=== PATIENT | male | born 1970 | race Caucasian/White ===

== ENCOUNTER 2020-04-01 08:27 | Inpatient (IN) | payer OTHER ==
--- OUTSIDE RECORDS SUMMARY | 2020-04-01 08:32 | XMS ---
:1970 Author Organization [facility] Care Team Providers Name Role Phone Omega Magdaleno Unavailable Unavailable Thelma Hernandez Unavailable Unavailable MOHAMUD SANDOVAL MD Unavailable Unavailable MD BRYANT Unavailable Unavailable Holly CEVALLOS MD Unavailable Unavailable Re-disclosure Warning The records that you are about to access may contain information from federally- assisted alcohol or drug abuse programs. If such information is present, then the following federally mandated warning applies: This information has been disclosed to you from records protected by federal confidentiality rules (42 CFR part 2). The federal rules prohibit you from making any further disclosure of this information unless further disclosure is expressly permitted by the written consent of the person to whom it pertains or as otherwise permitted by 42 CFR part 2. A general authorization for the release of medical or other information is NOT sufficient for this purpose. The Federal rules restrict any use of the information to criminally investigate or prosecute any alcohol or drug abuse patient.The records that you are about to access may contain highly sensitive health information, the redisclosure of which is protected by Article 27-F of the [facility] Public Health law. If you continue you may haveaccess to information: Regarding HIV / AIDS; Provided by facilities licensed or operated by the [facility] Office of Mental Health; or Provided by the [facility] Office for People With Developmental Disabilities. If such information is present, then the following [facility] mandated warning applies: This information has been disclosed to you from confidential records which are protected by state law. State law prohibits you from making any further disclosure of this information without the specific written consent of the person to whom it pertains, or as otherwise permitted by law. Any unauthorized further disclosure in violation of state law may result in a fine or skilled nursing sentence or both. A general authorization for the release of medical or other information is NOT sufficient authorization for further disclosure. Allergies and Adverse Reactions Type Description Substance Reaction Status Data Source(s ) Drug allergy No Known Allergies No Known Allergies [facility] Drug allergy No Known Allergies No Known Allergies [facility] Primary Car e Family History Family Member Family Member Family Member Date of Description Data Source(s) Name Gender Status Status Unknown Male Diagnosis 08/29/2018 [facility] 12[facility]:00 AM [facility]) Unknown Male Diagnosis 08/29/2018 [facility]:00 AM [facility]) Unknown Male Diagnosis 08/29/2018 [facility] ([facility] 12[facility]:00 AM [facility]) Unknown Male Diagnosis 08/29/2018 [facility] ([facility] 12[facility]:00 AM [facility]) Unknown Male Diagnosis 08/29/2018 [facility] ([facility] 12:00:00 AM [facility]) Encounters Encounter Providers Location Date Indications Data Source(s ) Inpatient Attender: DEQUAN WRIGHT-1D 03/29/2020 [facility] HOLLYdmitter: 05:47:00 PM bri MALLORY KOUYOUMDJIAN EDT - 03/31/2020 10:29:00 PM EDT Patient discharged. Outpatient ST 03/29/2020 02:10:00 PM EDT - [address] [place] [address] 06:43:00 PM EDT Patient discharged. Outpatient Attender: Thelma ROBINS 03/05/2020 09:17:02 [facility] Halidmitter: Thelma QUIROGA EDT - [facility] C enter Patient discharged. Outpatient Attender: Thelma 03/05/2020 01:56:00 PM [facility] Halidmitter: Thelma EDT - 03/05/2020 Anette Hernandez 11:59:00 PM EDT Medical C enter Patient discharged. Outpatient 03/05/2020 01:36:00 PM EDT - [facility] 03/05/2020 11:59:00 PM EDT Patient discharged. Outpatient Attender: GLEN CEVALLOS 05/05/2019 05:11:[address] Cosmo Gonzalez MD EST [facility] Outpatient Attender: GLEN CEVALLOS 04/21/2019 05:01:[address] Cosmo Gonzalez MD EDT [facility] Outpatient Attender: Omega 5T-LAB 02/18/2019 09:13:00 AM [facility] - Stefan Talbert Rasta EDT - 02/18/2019 Hospital 11:59:00 PM EDT Patient discharged. Insurance Providers Payer name Policy type Policy ID Covered Covered democrat's Policy P shaun / Coverage democrat ID relationship to [facility] ormation type lopez MVP MEDICAID [id number] SP [id number] HMO SELF PAY 0000 Self 0000 MEDICAID INP [id number] Self [id number] R [facility] [id number] Self [id number] HEALTHPLAN MCAID 11 Self 11 MCAID [id number] Self [id number] MVP/HHP [id number] self [id number] [facility] Medicaid [id number] 1 [id number] Plan 3&4 Medicaid Medicaid [id number] [place] [id number] SP [id number] HEALTH-MVP [place] [id number] SP [id number] 800 HEALTH-MVP [place] HEALTH [id number] PATIENT IS [id number] OPT INSURED MVP [id number] 18 [id number] SELF PAY 00 Self 00 MEDICAID OP [id number] Self [id number] [facility] [id number] Self [id number] 800 HEALTHPLAN [place] MVP/HHP O [id number] 01 [id number] [facility] [id number] self [id number] Problems, Conditions, and Diagnoses Code Display Name Description Problem Type Effective Data Dates Source(s) Z01.89 Encounter for Encounter for other Diagnosis 03/05/2020 [facility] other specified specified special 09:17:00 PM H ealth - special examinations EDT [facility] 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 02/18/2019 [facility] (current) drug long-term (current) 09:13:00 AM [place] therapy use of other EDT Hospital medications F11.20 Opioid dependence, Opiate dependence, Diagnosis 9 [facility] uncomplicated continuous 09:13:00 AM [facility] E78.5 Hyperlipidemia, Other and Diagnosis 02/18/2019 [facility] Marychuy nt unspecified unspecified 09:13:00 AM [facility] Surgeries/Procedures Procedure Description Date Indications Data Source(s) Venipuncture 02/18/2019 11:00:13 AM [facility] EDT - 02/18/2019 11:00:13 AM EDT Results ID Date Data Source [id number] 03/05/2020 09:18:00 PM EDT [facility] Name Value Range Interpretation Description Data Sup porting Code Source(s) Document(s ) SARS CoV-2 [facility] Interpretation This lab was ordered by [facility] and reported by [employer]. ID Date Data Source [id number] 03/05/2020 09:18:00 PM EDT [facility] Name Value Range Interpretation Code Description Data Fely rce(s) Supporting Document(s ) 2019-nCoV [facility] RNA XXX KAILEY+probe- Imp This lab [facility] and reported by [employer] [facility]. ID Date Data Source [id number] 03/06/2020 05:54:00 PM EDT [facility] Name Value Range Interpretation Code Description Data Fely rce(s) Supporting Document(s ) COVID-19 NA [facility] PCR - [facility] SARS CoV-2 RNA NEGATIVE (NOT DETECTED)Ne gative results do not preclude SARS-CoV-2 infection and should notbe used as the s ole basis for patient management decisions. Negativeresults must be combined with cl inical observations, patient history,and epidemiological information. Optimum spe cimen types and timingfor peak viral levels during infections caused by SARS-CoV-2 h ave notbeen determined. Collection of multiple specimens or types ofspecimens may be necessary to detect virus. Improper specimencollection and handling, sequenc e variability under primers/probes,or organism present below the limit of dete ction may lead to falsenegative results. Positive and negative predictive values oftesting are highly dependent on prevalence. False negative testresults are more like ly when prevalence is high.The expected result is Negative (Not Detected).The RS-CoV-2 test is intended for the qualitative detection ofnucleic acid from SARS-CoV-2 in nasopharyngeal and oropharyngealswab samples from patients who meet COVID-19 clinical and/orepidemiological criteria. For lower respiratory tract specimens,the as say is submitted for authorization by FDA under an EmergencyUse Authorization (EUA ). Testing methodology is Real-Time PCR (RT-PCR)using high-throughput technology . If received as separate collectiondevices, nasopharyngeal and oropharyngeal specime ns are combined foranalysis.Test results must be correlated with clinical presentation andevaluated in the context of other laboratory ad epidemiologic data.This te st has not been Food and Drug Administration (FDA) cleared orapproved and has been au thorized by FDA under an Emergency UseAuthorization (EUA).[facility] is certified under the ClinicalLaboratory Improvement Amendment s of 1988 (CLIA), 42 U.S.C. [id number], to perform high complexity tests. First Test? [facility] Employed in Healthcare? [facility] Symptomatic as defined by CDC? [facility] Date of Onset. [facility] Hospitalized? [facility] ICU? [facility] Resides in congregate care setting? [facility] ? [facility] Occupation ([employer] resident) NA [facility] Employer Name ([place] resident) NA N [facility] Employer Address ([place]) [place] [facility] Employer City ([place] resident) [place] N [facility] Employer State ([place] [facility] Employer Zip Code ([employer] resident) NA [facility] Performing Lab : [facility] [address] [address]Inzzmwn Director:Dr. Anibal [facility] CLIA Number:[id number] Employer Phone ([employer] resident) NA [facility] ID Date Data Source [id number] 05/10/2019 02:35:00 PM EST [facility] Name Value Range Interpretation Description Data Sup porting Code Source(s) Document(s ) AMPHETAMINES NEGATIVE <10 [facility] CLASS ng/mL [facility] BARBITURATES NEGATIVE <10 [facility] CLASS ng/mL [facility] BENZODIAZAPINES NEGATIVE <0.50 [facility] CLASS ng/mL [facility] COCAINE CLASS NEGATIVE <5.0 [facility] ng/mL [facility] MARIJUANA CLASS NEGATIVE <2.5 [facility] ng/mL [facility] MDMA CLASS NEGATIVE <[facility] ng/mL [facility] MEPROBAMATE CLASS NEGATIVE <2.5 [facility] ng/mL [facility] METHADONE CLASS NEGATIVE <5.0 [facility] ng/mL [facility] NICOTINE CLASS POSITIVE <5.[address] [facility] ng/mL (applies to [facility] COTININE >250.0 <5.[address] [facility] ng/mL normal [facility] Cotinine is a metabolite of nicotine. OPIOIDS CLASS NEGATIVE ng/mL <2.5 [facility] TAPENTADOL CLASS NEGATIVE ng/mL <5.0 [facility] TRAMADOL CLASS NEGATIVE ng/mL <5.0 [facility] PHENCYCLIDINE CLASS NEGATIVE ng/mL <10 [facility] ZOLPIDEM CLASS NEGATIVE ng/mL <5.0 [facility] For additional information, please refer [email or web address]/ [email or web address]/[email or web address](This link is being provided for informational/educational purposes only. )This drug testing is for medical treatment only.Analysis was performed as non-foren sic testing andthese results should be used only by healthcareproviders to render di agnosis or treatment, or tomonitor progress of medical conditions.For assistance wit h interpreting these drug results,please contact a [facility] ToxicologySp ecialist:[phone] ( ), M-F, 8am-6pm EST.These tests were develo ped and their analyticalperformance characteristics have been determined byFamo.us. They have not been cleared orapproved by the FDA. These assays have been validatedpursuant to the CLIA regulations and are used forclinical pur poses.This test was performed at:[facility] [address] [id number] Director: Donaldo Kim M.D. BUPRENORPHINE CLASS POSITIVE ng/mL <0.10 Abnormal (applies to [facility] non-numeric results) [facility] BUPRENORPHINE 5.08 ng/mL <0.10 Above high normal [facility] NALOXONE Negative ng/mL <0.25 [facility] NORBUPRENORPHINE 1.62 ng/mL <0.50 Above high normal [facility] Norbuprenorphine is a metabolite of bupr enorphine. FENTANYL CLASS NEGATIVE ng/mL <0.10 [facility] HEROIN METABOLITE CLASS NEGATIVE ng/mL <1.0 [facility] ID Date Data Source [id number] 04/26/2019 11:19:00 PM EDT [facility] Name Value Range Interpretation Description Data Sup porting Code Source(s) Document(s ) AMPHETAMINES NEGATIVE <10 [facility] CLASS ng/mL [facility] BARBITURATES NEGATIVE <10 [facility] CLASS ng/mL [facility] BENZODIAZAPINES NEGATIVE <0.50 [facility] CLASS ng/mL [facility] COCAINE CLASS NEGATIVE <5.0 [facility] ng/mL [facility] MARIJUANA CLASS NEGATIVE <2.5 [facility] ng/mL [facility] MDMA CLASS NEGATIVE <10 [facility] ng/mL [facility] MEPROBAMATE CLASS NEGATIVE <2.5 [facility] ng/mL [facility] METHADONE CLASS NEGATIVE <5.0 [facility] ng/mL [facility] NICOTINE CLASS POSITIVE <5.[address] [facility] ng/mL (applies to [facility] - results) [place] COTININE 151.3 <5.[address] [facility] ng/mL normal [facility] Cotinine is a metabolite of nicotine. OPIOIDS CLASS NEGATIVE ng/mL <2.5 [facility] TAPENTADOL CLASS NEGATIVE ng/mL <5.[facility] TRAMADOL CLASS NEGATIVE ng/mL <5.0 [facility] PHENCYCLIDINE CLASS NEGATIVE ng/mL <10 [facility] ZOLPIDEM CLASS NEGATIVE ng/mL <5.0 [facility] For additional information, please refer tohttp://[email or web address]/ faq/TVT550(This link is being provided for informational/educational purposes only. )This drug testing is for medical treatment only.Analysis was performed as non-foren sic testing andthese results should be used only by healthcareproviders to render di agnosis or treatment, or tomonitor progress of medical conditions.For assistance wit h interpreting these drug results,please contact a [facility] ToxicologySp ecialist:[phone] ( ), M-F, 8am-6pm EST.These tests were develo ped and their analyticalperformance characteristics have been determined by[employer]us. They have not been cleared orapproved by the FDA. These assays have been validatedpursuant to the CLIA regulations and are used forclinical pur poses.This test was performed at:[facility] [address] [id number] Director: Donaldo Kim M.D. BUPRENORPHINE CLASS POSITIVE ng/mL <0.10 Abnormal (applies to [facility] non-numeric results) [facility] BUPRENORPHINE 0.14 ng/mL <0.10 Above high normal [facility] NALOXONE Negative ng/mL <0.25 [facility] NORBUPRENORPHINE Negative ng/mL <0.50 [facility] FENTANYL CLASS NEGATIVE ng/mL <0.10 [facility] HEROIN METABOLITE CLASS NEGATIVE ng/mL <1.0 [facility] ID Date Data Source [id number] 02/18/2019 09:34:00 AM EDT [facility] Name Value Range Interpretation Description Data Sup porting Code Source(s) Document(s ) NIL 0.03 {IU/mL} Normal (applies NIL [facility] to non-numeric Health results) System Quantif NegativeNegative Normal (applies Quantiferon-T [facility] mon[facility]-TB test result. M. to non-numeric [facility]. [facility] Gold. tuberculosis results) System complex infectionunlikely. TB1-NIL 0.00 {IU/mL} Normal (applies TB1-NIL [facility] to non-numeric Health results) System Mitogen 7.78 {IU/mL} Normal (applies Mitogen-NIL [facility] -NIL to non-numeric Health results) System TB2-NIL 0.00 {IU/mL} Normal (applies TB2-NIL [facility] to non-numeric Health results) System The Nil tube value reflects the backgrou nd interferongamma immune response of the patient's blood sample.This value has be en subtracted from the patient'sdisplayed TB and Mitogen results.Lower than expected results with the Mitogen tube prevent false-negative Quantiferon readings byde tecting a patient with a potential immunesuppressive condition and/or subop timal pre-analyticalspecimen handling.The TB1 Antigen tube is coated with theM. tuberc ulosis-specific antigens designed to elicitresponses from TB antigen primed C D4+ helperT-lymphocytes.The TB2 Antigen tube is coated with theM. tuberculosis-specif ic antigens designed to elicitresponses from TB antigen primed CD4+ helper and CD8+cy totoxic T-lymphocytes.For additional information, please refer [email or web address] [email or web address]/[email or web address](This link is being provided for informational/educ ational purposes only.)Test Performed at:[facility], [place], [place] [address]Ysijgfixkimberly Garcia M.D. ID Date Data Source [id number] 02/18/2019 09:33:00 AM [facility] Name Value Range Interpretation Description Data Sup porting Code Source(s) Document(s ) Color YELLOW Yellow Normal (applies Color [facility] to non-numeric Health results) System Appearance of CLEAR Clear Normal (applies Urine [facility] Urine to non-numeric Appearance Health results) System Glucose, UA NEGATIVE < 50 Normal (applies Glucose, UA [facility] mg/dl to non-numeric Health results) System Specific 1.020 1.001 - Normal (applies Urine Specific [facility] gravity of 1.035 to non-numeric [facility] Urine results) System Protein NEGATIVE < 30 Normal (applies Protein [facility] [Mass/volume] mg/dl to non-numeric Health in Serum or results) System Plasma pH.. 6.5 4.6 - 8.0 Normal (applies pH.. [facility] {pH_units} pH units to non-numeric Health results) System Ketones NEGATIVE Negative Normal (applies Ketones UA [facility] [Mass/volume] mg/dL to non-numeric Health in Urine results) System Bilirubin NEGATIVE Negative Normal (applies Bilirubin [facility] Urine Sm to Lg to non-numeric Urine Health results) System Nitrate+Nitrit NEGATIVE Negative Normal (applies Nitrite [facility] Neg/Pos to non-numeric Health [Mass/volume] results) System in Unspecified specimen Leukocyte NEGATIVE Negative Normal (applies Leukocyte [facility] esterase Tr to Lg to non-numeric Esterase Health [Units/volume] results) Concentration System in Urine Urobilinogen 0.2 mg/dL Normal (applies Urobilinogen [facility] [Mass/volume] to non-numeric UA Health in Urine results) System Urine Blood NEGATIVE Negative Normal (applies Urine Blood [facility] Sm to Lg to non-numeric Health results) System ID Date Data Source [id number] 02/18/2019 09:33:00 AM EDT [facility] Name Value Range Interpretation Description Data Sup porting Code Source(s) Document(s ) Hemoglobin 11.9 14.0 - Below low normal Hemoglobin [facility] [Mass/volume] in {gm/dL} 18.0 Health Blood gm/dL System Erythrocytes 4.17 4.40 - Below low normal RBC Count [facility] [#/volume] in {10^6_u 5.90 Health Blood by L} 10^6 uL System Automated count Leukocytes 7.2 4.8 - Normal (applies WBC Count [facility] [#/volume] in {10^3_u 10.8 to non-numeric Health Unspecified L} 10^3 uL results) System specimen by Automated count Erythrocyte mean 28.5 pg 26.0 - Normal (applies MCH [facility] corpuscular 34.0 pg to non-numeric Health hemoglobin results) System [Entitic mass] by Automated count Hematocrit 36.9 % 41.0 - Below low normal Hematocrit [facility] [Volume 53.0 % Health Fraction] of System Blood Erythrocyte mean 88.5 fl 83.0 - Normal (applies MCV [facility] corpuscular 98.0 fl to non-numeric Health volume [Entitic results) System volume] by Automated count Erythrocyte mean 32.2 33.0 - Below low normal MCHC [facility] corpuscular {gm/dL} 37.0 Health hemoglobin gm/dL System concentration [Mass/volume] by Automated count Platelet mean 9.8 fl 7.4 - Normal (applies MPV [facility] volume [Entitic 10.4 fl to non-numeric Health volume] in Blood results) System by Automated count Erythrocyte 12.3 % 11.5 - Normal (applies RDW-CV [facility] distribution 14.5 % to non-numeric Health width [Entitic results) System volume] by Automated count Platelets 208 130 - Normal (applies Platelet Count [facility] [#/volume] in {10^3_u 400 to non-numeric Health Plasma by L} 10^3 uL results) System Automated count Eosinophils 0.50 0.05 - Above high Eosinophil # [facility] [#/volume] in {10^3_u 0.30 normal Health Blood L} 10^3 uL System Monocytes 0.7 0.3 - Normal (applies Monocyte # [facility] [#/volume] in {10^3_u 0.9 to non-numeric Health Blood by Manual L} 10^3 uL results) System count Neutrophils 4.4 2.0 - Normal (applies Neutrophil # [facility] [#/volume] in {10^3_u 8.1 to non-numeric Health Body fluid L} 10^3 uL results) System Neutrophils/100 60.5 % 55.0 - Normal (applies Neutrophil % Andres mckinley leukocytes in 75.0 % to non-numeric Health Blood by results) System Automated count Basophils 0.06 0.00 - Normal (applies Basophil # [facility] [#/volume] in {10^3_u 0.10 to non-numeric Health Blood by L} 10^3 uL results) System Automated count Lymphocyte # 1.6 1.0 - Normal (applies Lymphocyte # [facility] {10^3_u 5.5 to non-numeric Health L} 10^3 uL results) System Basophils/100 0.8 % 0.0 - Normal (applies Basophil % [facility] leukocytes in 1.0 % to non-numeric Health Unspecified results) System specimen by Manual count Lymphocytes 22.3 % 21.0 - Normal (applies Lymphocyte % [facility] [#/volume] in 51.0 % to non-numeric Health Blood by results) System Automated count Eosinophils/100 7.0 % 0.0 - Above high Eosinophil % [facility] leukocytes in 4.0 % normal Health Unspecified System specimen Monocytes/100 9.1 % 6.0 - Above high Monocyte % [facility] leukocytes in 9.0 % normal Health Blood System NRBC # 0.00 0.90 - Below low normal NRBC # [facility] {10^3_u 11.20 Health L} 10^3 uL System Immature 0.3 % 0.0 - Normal (applies Immature [facility] Granulocytes % 0.8 % to non-numeric Granulocytes % Healt h results) System Immature 0.02 0.00 - Normal (applies Immature [facility] Granulocytes # {10^3_u 0.09 to non-numeric Granulocytes # Healt h L} 10^3 uL results) System Nucleated 0.0 0.0 - Normal (applies NRBC % [facility] erythrocytes {/100_W 0.0 to non-numeric Health [#/volume] in BC} /100 results) System Body fluid WBC ID Date Data Source [id number] 02/18/2019 09:33:00 AM EDT [facility] Name Value Range Interpretation Description Data Sup porting Code Source(s) Document(s ) Triglyceride 32 mg/dl 40 - 160 Below low normal Triglycerides [facility] [Mass/volume] mg/dl , Serum Health in Serum or System Plasma Optimal = < 100 mg/dLBoderline High = 15 0 - 199 mg/dLHigh = 200 - 499 mg/dLVery High = > 500 mg/dL Cholesterol 138 mg/dl *.* mg/dl Normal (applies Cholesterol, [facility] [Mass/volume] in to non-numeric Serum Health S ystem Serum or Plasma results) <200 mg/dL = [id number] - 239 md/dL = Borderline>240 mg/dL = High Risk Cholesterol in LDL 76.6 mg/dL Normal (applies Low Density [facility] [Mass/volume] in to non-numeric Lipoprotein, [facility] Serum or Plasma results) Calculated OPTIMAL: LESS THAN 100 mg/dLNEAR OPTIMAL : 100 - 129 mg/dLBODERLINE HIGH: 130 - 150 mg/dL Cholesterol in HDL 55.0 mg/dL 32.0 - Normal (applies HDL Choleste rol, [facility] [Mass/volume] in 75.0 mg/dL to non-numeric Serum Health System Serum or Plasma results) Cholesterol in 6.4 Normal (applies VLDL, Serum [facility] VLDL [Mass/volume] to non-numeric Health System in Serum or Plasma results) CHD Risk 2.51 2.40 - Normal (applies CHD Risk [facility] 5.30 to [facility]-numeric [facility] results) ID Date Data Source [id number] 02/18/2019 09:33:00 AM EDSantiago Trevizo alth System Name Value Range Interpretation Description Data Sup porting Code Source(s) Document(s ) Sodium 139 137 - Normal (applies Sodium, Serum [facility] [Moles/volume] in mmol/L 145 to non-numeric Health Serum or Plasma mmol/L results) System Chloride 99 98 - Normal (applies Chloride, [facility] [Moles/volume] in mmol/L 107 to non-numeric Serum Health Serum or Plasma mmol/L results) System Potassium 4.7 3.6 - Normal (applies Potassium, [facility] [Mass/volume] in mmol/L 5.0 to non-numeric Serum Health Serum or Plasma mmol/L results) System Carbon dioxide, 34.0 22.0 - Above high CO2, Serum [facility] total mmol/L 30.0 normal Health [Moles/volume] in mmol/L System Serum or Plasma Total Protein 6.3 6.3 - Normal (applies Total Protein [facility] mg/dl 8.2 to non-numeric Health mg/dl results) System Urea nitrogen 14 9 - 21 Normal (applies Blood Urea [facility] [Mass/volume] in mg/dl mg/dl to non-numeric Nitrogen, Health Serum or Plasma results) Serum System Glucose 96 75 - Normal (applies Glucose, [facility] [Mass/volume] in mg/dL 110 to non-numeric Serum Health Serum or Plasma mg/dL results) System Creatinine 0.80 0.80 - Normal (applies Creatinine, [facility] [Mass/volume] in mg/dl 1.50 to non-numeric Serum Health Serum or Plasma mg/dl results) System Bilirubin.total 0.2 0.2 - Normal (applies Bilirubin, [facility] [Mass/volume] in mg/dl 1.3 to non-numeric Serum Total Health Serum or Plasma mg/dl results) System Alkaline 58 38 - Normal (applies Alkaline [facility] phosphatase {IU/L} 126 to non-numeric Phosphatase, [facility] isoenzymes IU/L results) Serum System [Enzymatic activity/volume] in Serum or Plasma by Heat stability Direct Bilirubin 0.1 0.0 - Normal (applies Direct [facility] mg/dl 0.4 to non-numeric Bilirubin Health mg/dl results) System Aspartate 18 5 - 40 Normal (applies Aspartate [facility] aminotransferase {IU/L} IU/L to non-numeric Transaminase, Heal th [Enzymatic results) Serum System activity/volume] in Serum or Plasma by With P-5'-P I. Phosphorus 3.4 2.5 - Normal (applies I. Phosphorus [facility] mg/dl 4.5 to non-numeric Health mg/dl results) System Albumin 4.1 3.9 - Normal (applies Albumin, [facility] [Mass/volume] in {gm/dl} 5.0 to non-numeric Serum Health Serum or Plasma gm/dl results) System Calcium 9.3 8.4 - Normal (applies Calcium, [facility] [Mass/volume] in mg/dl 10.2 to non-numeric Total Serum Health Serum or Plasma mg/dl results) System A/G Ratio 1.86 Normal (applies A/G Ratio [facility] to non-numeric Health results) System Alanine 12 7 - 56 Normal (applies Alanine [facility] aminotransferase {IU/L} IU/L to non-numeric Aminotransfer Heal th [Enzymatic results) ase, Serum System activity/volume] in Serum or Plasma Urate 4.3 3.5 - Normal (applies Uric Acid, [facility] [Mass/volume] in mg/dl 8.5 to non-numeric Serum Health Serum or Plasma mg/dl results) System Anion gap in Serum 6.00 8.00 - Below low normal Anion Gap [facility] or Plasma mmol/L 12.00 Health mmol/L System Glomerular > 90 Normal (applies GFR [facility] filtration to non-numeric Health rate/1.73 sq results) System M.predicted [Volume Rate/Area] in Serum or Plasma by Creatinine-based formula (CKD-EPI) eGFR will provide clinicians with a more accurate indicator of renal function then the serum creatinine. The eGFR is automa tically calculated from an empiric formula (endorsed by the [employer] ion) which incorporates age, sex, and race.Clinicians may notice surprisingly low GFR's with serum creatinine valueswithin normal range- particularly in elderly wo men (with low muscle mass).In the hospital setting, the eGFR should add an element of safety in drug dosing, in assessing the risk of IV contrast administration, and in assessing vascular risk.The NKF staging system is as follows:Normal: eGFR >90 with no kidney markersStage 1: eGFR >90 with kidney markers*Stage 2: eGFR 60- 89Stage 3: eGFR 30-59Stage 4: eGFR 15-29Stage 5: eGFR <15 (usually requir ing dialysis)*Markers include: Proteinuria, Hematuria, abnormal imaging-studies, or other blood or urine test abnormalities ID Date Data Source [id number] 02/18/2019 09:30:00 AM EDT [facility] Name Value Range Interpretation Description Data Source(s ) Supporting Code Document(s ) Reagin Ab Non-react Normal (applies to RPR. [facility] [Presence] shawn non-numeric Health System in Serum by results) RPR Procedure Social History Code Duration Value Status Description Data Source(s ) Caffeine Use 04/08/2019 completed coffee, > 6 cups NEXTGE N ([facility] 12:00:00 AM EDT [facility]) Vital Signs ID Date Data Source UNK Name Value Range Interpretation Code Description Data Source(s) Body temperature 97.9 Fahrenheit 97.9 Fahrenhei t [facility] Diastolic blood 75 mmHg 75 mmHg [facility] Systolic blood 127 mmHg 127 mmHg [facility] Respiratory rate 18 bpm 18 bpm [facility] Heart rate 93 bpm 93 bpm [facility]
--- NOTE | 2020-04-01 08:52 | BHS.RME ---
Substance Use & Tx History - Substance Use History Heroin Substance amount: 30 bags Frequency of use: Daily Substance route: Inhalation (ex: sniffing or snorting) Date of Last Use: 04/01/20 (started age 49) Xanax Substance amount: 2mg -5 tabs Frequency of use: Daily Substance route: Oral Date of Last Use: 04/01/20 (started age 43) Nicotine Substance amount: 2-3 packs Frequency of use: Daily Substance route: Smoking Date of Last Use: 04/01/20 (started age 17)
[2020-04-01 08:54] VITALS: BMI 25.4
--- NOTE | 2020-04-01 09:42 | HP ---
COWS - Scale Resting Pulse: 1= MD 81-100 CIWA Score - Admission Criteria OASAS Guidelines: Admission for Medically Managed Detox: Requires at least one of the followin. CIWA greater than 12 2. Seizures within the past 24 hours 3. Delirium tremens within the past 24 hours 4. Hallucinations within the past 24 hours 5. Acute intervention needed for co occurring medical disorder 6. Acute intervention needed for co occurring psychiatric disorder 7. Severe withdrawal that cannot be handled at a lower level of care (continued vomiting, continued diarrhea, abnormal vital signs) requiring intravenous medication and/or fluids 8. Admitting History and Physical - Admission Chief Complaint: Mr. Galaviz is a 49 yo man who presents to [facility] requesting admission for heroin use. History of Present Illness: Mr. Galaviz is a 49 yo man who presents to [facility] requesting admission for heroin use. He was last here in January of 2019 and left AMA after two days. More recently, he left [facility] and [facility] as he felt uncomfortable with withdrawal symptoms. He states he left [facility] last Sunday, went home, used heroin and Xanax. Then 4 days ago, on SundayMarch 28, he went to [facility]. He left [facility] yesterday, went home and used again. He presents today asking for detox admission. He states his longest sobriety was 7 mos at [facility] and then 6 mos at [facility], then 7 mos at home, total 20 mos betwen 2018 and 2018. He defines triggers as "complacency" "I can do this". 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 L4 and L5 PSH: 2008: left finger amputated Pscyh: depression, he self d/c'd: Prozac, Wellbutrin SOC: lives with family and mother Legal: none Substance Use History Heroin Substance amount: 30 bags Frequency of use: Daily Substance route: Inhalation (ex: sniffing or snorting) Date of Last Use: 04/01/20 (started age 49) OD 6 mos ago. Has narcan at home, does not carry it with him Xanax Substance amount: 2mg -5 tabs Frequency of use: Daily Substance route: Oral Date of Last Use: 04/01/20 (started age 43) Nicotine Substance amount: 2-3 packs Frequency of use: Daily Substance route: Smoking Date of Last Use: 04/01/20 (started age 17) Alcohol: denies Suboxone: does not want to continue, last rx in January 10 Meets admission criteria, high risk relapse, high risk OD Tomi Galaviz, 1970 Search Date: 04/01/2020 09:49:32 AM The Drug Utilization Report below displays all of the controlled substance prescriptions, if any, that your patient has filled in the last twelve months. The information displayed on this report is compiled from pharmacy submissions to the Department, and accurately reflects the information as submitted by the pharmacies. This report was requested by: Nika Gonzales | Reference #: [id number] Others' Prescriptions Patient Name: Tomi Galaviz Date: 1970 Address: [address] [place] [address] Sex: Male Rx Written Rx Dispensed Drug Quantity Days Supply Prescriber Name 02/17/2020 02/18/2020 buprenorphine-naloxone 4-1 mg sl film 90 30 Charlie Franklin J (MSN) 02/17/2020 02/18/2020 clonazepam 1 mg tablet 60 30 Charlie Franklin J, (MSN) 02/03/2020 02/04/2020 clonazepam 1 mg tablet 20 10 Charlie Franklin J, (MSN) 02/03/2020 02/04/2020 buprenorphine-naloxone 4-1 mg sl film 30 10 Charlie Franklin J (MSN) 01/19/2020 01/20/2020 buprenorphine-naloxone 4-1 mg sl film 45 15 Charlie Franklin J, (MSN) 01/19/2020 01/20/2020 clonazepam 1 mg tablet 15 15 Charlie Franklin J, (MSN) 01/14/2020 01/14/2020 buprenorphine-naloxone 4-1 mg sl film 14 7 Charlie Frnaklin J (MSN) History Source: Patient Limitations to Obtaining History: No Limitations - Smoking History Smoking history: Current every day smoker Have you smoked in the past 12 months: Yes Aproximately how many cigarettes per day: 40 Admission ROS [facility] Allergies/Adverse Reactions: Allergies Allergy/AdvReac Type Severity Reaction Status Date / Time No Known Allergies Allergy Verified 04/01/20 09:20 Exam Limitations: No Limitations - Ebola screening Have you traveled outside of the country in the last 21 days: No Have you been sick,other than usual withdrawal symptoms: No Do you have a fever: No - Review of Systems Constitutional: Unintentional Wgt. Loss (40 lb loss in 8 mos) EENT: reports: No Symptoms Reported Respiratory: reports: No Symptoms reported Cardiac: reports: No Symptoms Reported Musculoskeletal: reports: Back Pain (can radiate to medial right with heavy work) Integumentary: reports: No Symptoms Reported Neuro: reports: Other (above: back pain) Endocrine: reports: No Symptoms Reported Hematology: reports: No Symptoms Reported Psychiatric: reports: Depressed (no SI) Patient History - Patient Medical History Hx Anemia: No Hx Asthma: No Hx Chronic Obstructive Pulmonary Disease (COPD): No Hx Cancer: No Hx Cardiac Disorders: No Hx Congestive Heart Failure: No Hx Hypertension: No Hx Hypercholesterolemia: No Hx Pacemaker: No HX Cerebrovascular Accident: No Hx Seizures: No Hx Dementia: No Hx Diabetes: No Hx Gastrointestinal Disorders: No Hx Liver Disease: No Hx Genitourinary Disorders: No Hx Sexually Transmitted Disorders: No Hx Renal Disease (ESRD): No Hx Thyroid Disease: No Hx Human Immunodeficiency Virus (HIV): No Hx Hepatitis C: No Hx Depression: Yes Hx Suicide Attempt: No Hx Bipolar Disorder: No Hx Schizophrenia: No - Patient Surgical History Past Surgical History: Yes Hx Neurologic Surgery: Yes (Back sx in 2007) Hx Cataract Extraction: No Hx Cardiac Surgery: No Hx Lung Surgery: No Hx Breast Surgery: No Hx Breast Biopsy: No Hx Abdominal Surgery: No Hx Appendectomy: No Hx Cholecystectomy: No Hx Genitourinary Surgery: No Hx Section: No Hx Orthopedic Surgery: No Other Surgical History: SP L MIDDLE FINGER AMPUTATION in 2007 Anesthesia Reaction: No - PPD History Previous Implant?: Yes Documented Results: Negative w/o proof Implanted On Prior [facility] Admission?: No - Smoking Cessation Smoking history: Current every day smoker Have you smoked in the past 12 months: Yes Aproximately how many cigarettes per day: 40 Hx Chewing Tobacco Use: No Initiated information on smoking cessation: Yes 'Breaking Loose' booklet given: 04/01/20 Admission Physical Exam [facility] - Vital Signs Vital Signs: Vital Signs - 24 hr 04/01/20 08:49 Temperature 98.2 F Pulse Rate 88 Respiratory 19 Rate Blood Pressure 122/71 - Physical General Appearance: Yes: No Apparent Distress, Nourished, Appropriately Dressed, Tremorous HEENTM: Yes: EOMI, Hearing grossly Normal, Normocephalic, Normal Voice Respiratory: Yes: Lungs Clear, No Respiratory Distress, No Accessory Muscle Use Neck: Yes: Within Normal Limits Breast: Yes: Breast Exam Deferred Cardiology: Yes: Regular Rhythm, Regular Rate Abdominal: Yes: Normal Bowel Sounds, Non Tender, Flat, Soft Genitourinary: Yes: Other (deferred) Back: Yes: Normal Inspection Musculoskeletal: Yes: Gait Steady Extremities: Yes: Normal Inspection, Non-Tender Neurological: Yes: Alert, Normal Response Integumentary: Yes: Normal Color, Dry, Warm - Diagnostic (1) Opioid withdrawal Current Visit: Yes Status: Acute (2) Sedative abuse Current Visit: Yes Status: Acute (3) Nicotine dependence Current Visit: No Status: Chronic Cleared for Admission S - Detox or Rehab [facility] Level of Care: Medically Managed Breathalyzer - Breathalyzer Breathalyzer: 0 Urine Drug Screen - Test Device Lot number: [id number] Expiration date: 01/26/22 - Control Is test valid?: Yes - Results Drug screen NEGATIVE: No Urine drug screen results: MOP-Opiates, OXY-Oxycodone, BZO-Benzodiazepines, BUP- Suboxone Inpatient Rehab Admission - Rehab Decision to Admit Inpatient rehab admission?: No
--- OUTSIDE RECORDS SUMMARY | 2020-04-01 09:48 | XMS ---
:1970 Author Organization [facility] Care Team Providers Name Role [...] is protected by Article 27-F of the [facility] Public Health law. If you continue you may haveaccess to information: Regarding HIV / AIDS; Provided by facilities licensed or operated by the [facility] Office of Mental Health; or Provided by the [facility] Office for People With Developmental Disabilities. If such information is present, then the following [facility] mandated warning applies: This information has been [...] law may result in a fine or retirement sentence or both. A general authorization for the release of medical or other information is NOT sufficient authorization for further disclosure. Allergies and Adverse Reactions Type Description Substance Reaction Status Data Source(s ) Drug allergy No Known Allergies No Known Allergies [facility] Drug allergy No Known Allergies No Known Allergies [facility] Primary Car e Family History Family Member Family Member Family Member Date of Description Data Source(s) Name Gender Status Status Unknown Male Diagnosis 08/29/2018 [facility] 12:00:00 AM [facility]) Unknown Male Diagnosis 08/29/2018 [facility] ([facility] 12:00:00 AM [facility]) Unknown Male Diagnosis 08/29/2018 [facility] ([facility] 12:00:00 AM [facility]) Unknown Male Diagnosis 08/29/2018 [facility] ([facility] 12:00:00 AM [facility]) Unknown Male Diagnosis 08/29/2018 [facility]EXTGEN ([facility] 12:00:00 AM [facility]) Encounters Encounter Providers Location Date Indications Data Source(s ) Inpatient Attender: DEQUAN WRIGHT-1D 03/29/2020 [facility] HOLLYdmitter: 05:47:00 PM bri MALLORY KOUYOUMDJIAN EDT - 03/31/2020 10:29:00 PM EDT Patient discharged. Outpatient ST 03/29/2020 02:10:00 PM EDT - [address] [place] [address] 06:43:00 PM EDT Patient discharged. Outpatient Attender: Thelma ROBINS 03/05/2020 09:17:02 [facility] Halidmitter: Thelma QUIROGA EDT - [facility] Medical C enter Patient discharged. Outpatient Attender: Thelma 03/05/2020 01:56:00 PM [facility] Halidmitter: Thelma EDT - 03/05/2020 Anette Hernandez 11:59:00 PM EDT Medical C enter Patient discharged. Outpatient 03/05/2020 01:36:00 PM EDT - [facility] Care 03/05/2020 11:59:00 PM EDT Patient discharged. Outpatient Attender: GLEN CEVALLOS 05/05/2019 05:11:[address] Cosmo Gonzalez MD EST [facility] Outpatient Attender: GLEN CEVALLOS 04/21/2019 05:01:[address] Cosmo Gonzalez MD EDT [facility] Outpatient Attender: Omega 5T-LAB 02/18/2019 09:13:00 AM [facility] - Stefan Talbert Rasta EDT - 02/18/2019 Hospital 11:59:00 PM EDT Patient discharged. Insurance Providers Payer name Policy type Policy ID Covered Covered republican's Policy P shaun / Coverage republican ID relationship to Lopez Inf ormation type lopez MVP MEDICAID [id number] SP [id number] HMO SELF PAY 0000 Self 0000 MEDICAID INP [id number] Self [id number] R [facility] [id number] Self [id number] HEALTHPLAN MCAID 11 Self 11 MCAID [id number] Self [id number] MVP/HHP [id number] self [id number] P/Cohn [facility] Medicaid [id number] 1 [id number] Plan 3&4 Medicaid Medicaid [id number] [place] [id number] SP [id number] HEALTH-MVP [place] [id number] SP [id number] HEALTH-MVP [place] [facility] [id number] PATIENT IS [id number] OPT INSURED MVP [id number] 18 [id number] SELF PAY 00 Self 00 MEDICAID OP [id number] Self [id number] [facility] [id number] Self [id number] HEALTHPLAN [place] MVP/HHP O [id number] 01 [id number] [facility] [id number] self [id number] Problems, Conditions, and Diagnoses Code Display Name Description Problem Type Effective Data Dates Source(s) Z01.89 Encounter for Encounter for other Diagnosis 03/05/2020 Gale claudio other specified specified special 09:17:00 PM H ealth - special examinations EDT [facility] 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 02/18/2019 [facility] (current) drug long-term (current) 09:13:00 AM [facility] use of other EDT Hospital medications F11.20 Opioid dependence, Opiate dependence, Diagnosis 9 [facility] uncomplicated continuous 09:13:00 AM [facility] E78.5 Hyperlipidemia, Other and Diagnosis 02/18/2019 [facility] Marychuy nt unspecified unspecified 09:13:00 AM [facility] Surgeries/Procedures Procedure Description Date Indications Data Source(s) Venipuncture 02/18/2019 11:00:13 AM [facility] EDT - 02/18/2019 11:00:13 AM EDT Results ID Date Data Source [id number] 03/05/2020 09:18:00 PM EDT [facility] Name Value Range Interpretation Description Data Sup porting Code Source(s) Document(s ) SARS CoV-2 [facility] Interpretation This lab was ordered by [facility] and reported by [employer]. ID Date Data Source [id number] 03/05/2020 09:18:00 PM EDT [facility] Name Value Range Interpretation Code Description Data Fely rce(s) Supporting Document(s ) 2019-nCoV [facility] RNA XXX KAILEY+probe- Imp This lab was ordered by [facility] and reported by [facility]. ID Date Data Source [id number] 03/06/2020 05:54:00 PM EDT [facility] Name Value Range Interpretation Code Description Data Fely rce(s) Supporting Document(s ) COVID-19 NA [facility] PCR - [facility] SARS CoV-2 RNA NEGATIVE (NOT DETECTED)Ne gative [...] thorized by FDA under an Emergency UseAuthorization (EUA).[facility] is certified under the ClinicalLaboratory Improvement Amendment s of 1988 (CLIA), 42 U.S.C. [id number], to perform high complexity tests. First Test? [facility] Employed in Healthcare? [facility] Symptomatic as defined by CDC? [facility] Date of Onset. [facility] Hospitalized? [facility] ICU? [facility] Resides in congregate care setting? [facility] ? [facility] Occupation ([facility] resident) NA [facility] Employer Name ([place] resident[place] NA N [facility] Employer Address ([place] resident) NA [facility] Employer City ([place] resident) NA N [facility] Employer State ([place] resident) NA [facility] Employer Zip Code ([facility] resident) NA [facility] Performing Lab : [place] [facility] [employer] [address] [address]V[place]ewf Director:Dr. Anibal [facility] CLIA Number:[id number] Employer Phone ([facility] resident) NA [facility] ID Date Data Source [id number] 05/10/2019 02:35:00 PM EST [facility] Name Value Range Interpretation Description Data Sup porting Code Source(s) Document(s ) AMPHETAMINES NEGATIVE <10 [facility] CLASS ng/mL [facility] BARBITURATES NEGATIVE <10 [facility] CLASS ng/mL [facility] BENZODIAZAPINES NEGATIVE <0.50 [facility] CLASS ng/mL [facility] COCAINE CLASS NEGATIVE <5.0 [facility] ng/mL [facility] MARIJUANA CLASS NEGATIVE <2.5 [facility] ng/mL [facility] MDMA CLASS NEGATIVE <[facility] ng/mL [facility] MEPROBAMATE CLASS NEGATIVE <2.5 [facility] ng/mL [facility] METHADONE CLASS NEGATIVE <5.0 [facility] ng/mL [facility] NICOTINE CLASS POSITIVE <5.[address] [facility] ng/mL (applies to [facility] COTININE >250.0 <5.[address] [facility] ng/mL normal [facility] Cotinine is a metabolite of nicotine. OPIOIDS CLASS NEGATIVE ng/mL <2.5 [facility] TAPENTADOL CLASS NEGATIVE ng/mL <5.[facility] TRAMADOL CLASS NEGATIVE ng/mL <5.0 [facility] C [facility] PHENCYCLIDINE CLASS NEGATIVE ng/mL <10 [facility] ZOLPIDEM CLASS NEGATIVE ng/mL <5.0 [facility] For additional information, please refer [email or web address]/ [email or web address](This link is being provided for informational/educational purposes only. )This drug testing is for medical treatment only.Analysis was performed as non-foren sic testing andthese results should be used only by healthcareproviders to render di agnosis or treatment, or tomonitor progress of medical conditions.For assistance wit h interpreting these drug results,please contact a [employer] T[facility]ology[facility] ecialist:[phone] ( ), M-F, 8am-6pm EST.These tests were develo ped and their analyticalperformance characteristics have been determined by[facility]onominalu[employer]ru. They have not been cleared orapproved by the FDA. These assays have been validatedpursuant to the CLIA regulations and are used forclinical pur poses.This test was performed at:[employer] [address] [address]Nhbftvb Director: Donaldo Kim M.D. BUPRENORPHINE CLASS POSITIVE ng/mL <0.10 Abnormal (applies to [facility] non-numeric results) [facility] BUPRENORPHINE 5.08 ng/mL <0.10 Above high normal [facility] NALOXONE Negative ng/mL <0.25 [facility] NORBUPRENORPHINE 1.62 ng/mL <0.50 Above high normal [facility] Norbuprenorphine is a metabolite of bupr enorphine. FENTANYL CLASS NEGATIVE ng/mL <0.10 [facility] HEROIN METABOLITE CLASS NEGATIVE ng/mL <1.0 [facility] ID Date Data Source [id number] 04/26/2019 11:19:00 PM EDT [facility] Name Value Range Interpretation Description Data Sup porting Code Source(s) Document(s ) AMPHETAMINES NEGATIVE <10 [facility] CLASS ng/mL [facility] BARBITURATES NEGATIVE <10 [facility] CLASS ng/mL [facility] BENZODIAZAPINES NEGATIVE <0.50 [facility] CLASS ng/mL [facility] COCAINE CLASS NEGATIVE <5.0 [facility] ng/mL [facility] MARIJUANA CLASS NEGATIVE <2.5 [facility] ng/mL [facility] MDMA CLASS NEGATIVE <10 [facility] ng/mL [facility] MEPROBAMATE CLASS NEGATIVE <2.5 [facility] ng/mL [facility] METHADONE CLASS NEGATIVE <5.0 [facility] ng/mL [facility] NICOTINE CLASS POSITIVE <5.[address] [facility] ng/mL (applies to [facility] - results) [place] COTININE 151.3 <5.[address] [facility] ng/mL normal [facility] Cotinine is a metabolite of nicotine. OPIOIDS CLASS NEGATIVE ng/mL <2.5 [facility] TAPENTADOL CLASS NEGATIVE ng/mL <5.[facility] TRAMADOL CLASS NEGATIVE ng/mL <5.0 [facility] PHENCYCLIDINE CLASS NEGATIVE ng/mL <10 [facility] ZOLPIDEM CLASS NEGATIVE ng/mL <5.0 [facility] For additional information, please refer [email or web address]/ [email or web address](This link is being provided for informational/educational purposes only. )This drug testing is for medical treatment only.Analysis was performed as non-foren sic testing andthese results should be used only by healthcareproviders to render di agnosis or treatment, or tomonitor progress of medical conditions.For assistance wit h interpreting these drug results,please contact a [employer] [facility]ology[facility] ecialist:[phone] ( ), M-F, 8am-6pm EST.These tests were develo ped and their analyticalperformance characteristics have been determined by[facility]. They have not been cleared orapproved by the FDA. These assays have been validatedpursuant to the CLIA regulations and are used forclinical pur poses.This test was performed at:[employer] [address] [address]Vnsnktq Director: Donaldo Kim M.D. BUPRENORPHINE CLASS POSITIVE ng/mL <0.10 Abnormal (applies to [facility] non-numeric results) [facility] BUPRENORPHINE 0.14 ng/mL <0.10 Above high normal [facility] NALOXONE Negative ng/mL <0.25 [facility] NORBUPRENORPHINE Negative ng/mL <0.50 [facility] FENTANYL CLASS NEGATIVE ng/mL <0.10 [facility] HEROIN METABOLITE CLASS NEGATIVE ng/mL <1.0 [facility] ID Date Data Source [id number] 02/18/2019 09:34:00 AM EDT [facility] [...] totoxic T-lymphocytes.For additional information, please refer [email or web address] [email or web address] Decor/faq/204(This link is being provided for informational/educ ational purposes only.)Test Performed at:[facility], [place], [place] [address]Xqrfaqzkkimberly Garcia M.D. ID Date Data Source [id number] 02/18/2019 09:33:00 AM [facility] Name [...] [place] [facility] gravity of 1.035 to non-numeric [facility] Urine results) System Protein NEGATIVE < [...] Health results) System ID Date Data Source [id number] 02/18/2019 09:33:00 AM EDT [facility] [...] Body fluid WBC ID Date Data Source [id number] 02/18/2019 09:33:00 AM EDT Andreas Trevizo alth [...] Serum or Plasma results) <200 mg/dL = [id number] - 239 md/dL = Borderline>240 mg/dL = High Risk Cholesterol in LDL 76.6 mg/dL Normal (applies Low Density [facility] [Mass/volume] in to non-numeric Lipoprotein, [facility] Serum or Plasma results) Calculated [...] Health System results) ID Date Data Source [id number] 02/18/2019 09:33:00 AM EDSantiago Trevizo alth System [...] [facility] phosphatase {IU/L} 126 to non-numeric Phosphatase, [facility] isoenzymes IU/L results) Serum System [Enzymatic activity/volume] [...] urine test abnormalities ID Date Data Source [id number] 02/18/2019 09:30:00 AM EDT [facility] Name Value Range Interpretation Description Data Source(s ) Supporting Code Document(s ) Reagin Ab Non-react Normal (applies to [facility]. [facility] [Presence] shawn non-numeric Health System in Serum by results) [facility] Procedure Social History Code Duration Value Status Description Data Source(s ) Caffeine Use 04/08/2019 completed coffee, > 6 cups NEXTGE N ([facility] 12:00:00 AM EDT [facility]) Vital Signs ID Date Data Source UNK Name Value Range Interpretation Code Description Data Source(s) Body temperature 97.9 Fahrenheit 97.9 Fahrenhei t [facility] Diastolic blood 75 mmHg [address] [facility] Systolic blood 127 mmHg [address] [facility] Respiratory rate 18 bpm 18 bpm [facility] Heart rate 93 bpm 93 bpm [facility]
[2020-04-01] MEDS ORDERED: MAGNESIUM CITRATE 300 ML BOTTLE PO PRN (09:53)
[2020-04-01] MEDS ORDERED: MAG HYDROX/AL HYDROX/SIMETH 30 ML UNIT-DOSE CUP PO PRN (09:53)
[2020-04-01] MEDS ORDERED: MENTHOL/PHENOL 1 EACH UD MM PRN (09:53)
[2020-04-01] MEDS ORDERED: METHADONE HCL 10 MG TABLET (FOR DETOX USE ONLY) PO ONE (09:53)
[2020-04-01] MEDS ORDERED: ACETAMINOPHEN 325 MG TABLET (FP) PO PRN ×2 (09:53)
[2020-04-01] MEDS ORDERED: BISMUTH SUBSALICYLATE 262 MG/15 ML BTL PO PRN (09:53)
[2020-04-01] MEDS ORDERED: IBUPROFEN 400 MG TABLET (FP) PO PRN (09:53)
[2020-04-01] MEDS ORDERED: MAGNESIUM HYDROX 2400MG/30ML ORAL SUSPENSION 30 ML CUP PO PRN (09:53)
[2020-04-01] MEDS ORDERED: cloNIDine HCL 0.1 MG TABLET PO PRN (09:53)
[2020-04-01] MEDS ORDERED: ONDANSETRON *ODT* 4 MG TABLET SL PRN (09:53)
[2020-04-01] MEDS ORDERED: METHOCARBAMOL 500 MG TABLET PO PRN (09:53)
[2020-04-01] MEDS ORDERED: LORazepam 1 MG TABLET PO PRN (09:58)
[2020-04-01] MEDS ORDERED: hydrOXYzine PAMOATE 25 MG CAPSULE (FP) PO SCH (10:00)
--- NOTE | 2020-04-01 10:22 | BHS.RME ---
Substance Use & Tx History - Substance Use History Heroin Substance amount: 30 bags Frequency of use: Daily Substance route: Inhalation (ex: sniffing or snorting) Date of Last Use: 04/01/20 (started 48) Xanax Substance amount: 2mg - 5 tabs Frequency of use: Daily Substance route: Oral Date of Last Use: 04/01/20 (started age 43) Nicotine Substance amount: 2-3 packs Frequency of use: Daily Substance route: Oral Date of Last Use: 04/01/20 (started age 17) Physical/Psych/Mental Status - Behavior General Behavior: Increased activity (restlessness, agitation) Eye Contact: Normal - Cooperativeness Cooperativeness: Cooperative - Thinking Thought Processes: Tight, Logical, Goal Directed - Physical Health Problems Is patient presently having any pain?: No Does patient presently have any injuries (include location): No Does patient currently have a fever: No Is patient : No COWS - Scale Resting Pulse: 1= [place] 81-100 Sweatin= Chills/Flushing Restless Observation: 1= Difficult to Sit Still Pupil Size: 1= Pupils >than Normal Bone or Joint Aches: 1= Mild Discomfort Runny Nose/ Eye Tearin= Runny Nose/Eyes GI Upset > 30mins: 1= Stomach Cramp Tremor Observation: 1= Tremor [place], Not Seen Yawning Observation: 1= 1-2x During Session Anxiety or Irritability: 0= None Goose Flesh Skin: 0=Smooth Skin COWS Score: 10 CIWA Anxiety: 3 Headache: 0-None Present
[2020-04-01] MEDS: GABAPENTIN 300 MG CAPSULE PO SCH ×2 (11:23→17:11)
[2020-04-01] MEDS: PRENATAL VITAMINS W/ FOLIC ACID TABLET (FP) PO SCH (11:23)
[2020-04-01] MEDS: NICOTINE 21 MG/24 HOURS TOPICAL PATCH TD SCH ×2 (11:30→11:48)
[2020-04-01] MEDS: NICOTINE POLACRILEX 2 MG GUM BUC PRN ×2 (11:48→17:49)
[2020-04-01] MEDS ORDERED: hydrOXYzine PAMOATE 25 MG CAPSULE (FP) PO PRN (12:21)
--- NOTE | 2020-04-01 14:06 | CONSULT ---
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 Refer to addiction counselor's summary for further information Medical History: Unremarkable except for amputation of left middle finger(work injury) in 2007 and back surgery involving L4L5 disc in 2007. Smokes cigarettes 2 ppd Psychiatric History: Patient is known for one previous admission to this facility. He is heavily sedated at this time and not suitable for psychiatric interviw Psychiatric Findings - Initial Treatment Plan Initial Treatment Plan: Please reconsult when patient ismore appropriate for psychiatric interview
[2020-04-01 14:32] LABS: HEMATOCRIT 37.9 % (35.4-49); HEMOGLOBIN 12.7 GM/dL (11.7-16.9); MCH 28.8 pg (25.7-33.7); MCHC 33.4 g/dl (32.0-35.9); MEAN PLT VOLUME 8.1 fl (7.5-11.1); PLATELET COUNT 206 K/MM3 (134-434); RBC 4.41 M/mm3 (4.00-5.60)
[2020-04-01] MEDS: LORazepam 2 MG TABLET PO SCH ×3 (14:52→22:06)
[2020-04-01 15:10] LABS: ALBUMIN 4.3 g/dl (3.4-5.0); BILIRUBIN,TOTAL 0.3 mg/dL (0.2-1); BLOOD UREA NITROGEN 17.4 mg/dL (7-18); CALCIUM 8.3 mg/dL (8.5-10.1); CREATININE 0.9 mg/dL (0.55-1.3)
[2020-04-01 15:11] LABS: TOT PROT 7.4 g/dl (6.4-8.2)
[2020-04-01] MEDS: MELATONIN 5 MG TABLETS PO SCH (22:06)
[2020-04-01] MEDS: THIAMINE HCL 100 MG TABLET (FP) PO SCH (22:06)
[2020-04-02] MEDS: GABAPENTIN 300 MG CAPSULE PO SCH ×3 (03:00→18:18)
[2020-04-02] MEDS: LORazepam 2 MG TABLET PO SCH ×4 (06:24→22:24)
[2020-04-02] MEDS ORDERED: METHADONE HCL 10 MG TABLET (FOR DETOX USE ONLY) ONE (09:28)
[2020-04-02] MEDS ORDERED: METHADONE HCL 5 MG TABLET (FOR DETOX USE ONLY) ONE (09:28)
[2020-04-02] MEDS ORDERED: METHADONE (DETOX) 20 MG, METHADONE (DETOX) 5 MG PO ONE (10:00)
--- NOTE | 2020-04-02 10:11 | EKG ---
Test Reason : Blood Pressure : / mmHG Vent. Rate : 080 BPM Atrial Rate : 080 BPM P-R Int : 166 ms QRS Dur : 086 ms QT Int : 372 ms P-R-T Axes : 065 054 036 degrees QTc Int : 429 ms NORMAL SINUS RHYTHM NORMAL ECG WHEN COMPARED WITH ECG OF 11-FEB-2019 16:55, NO SIGNIFICANT CHANGE WAS FOUND Confirmed by DONOVAN ACEVEDO MD ([id number]) on 04/02/2020 10:11:00 AM Referred By: Confirmed By:DONOVAN ACEVEDO MD
[2020-04-02] MEDS: NICOTINE 21 MG/24 HOURS TOPICAL PATCH TD SCH (10:54)
[2020-04-02] MEDS: PRENATAL VITAMINS W/ FOLIC ACID TABLET (FP) PO SCH (11:27)
--- NOTE | 2020-04-02 13:54 | PN ---
[facility] CIWA - CIWA Score Nausea/Vomitin-No Nausea/No Vomiting Muscle Tremors: 2 Anxiety: 2 Agitation: 2 Paroxysmal Sweats: 2 Orientation: 0-Oriented Tacttile Disturbances: 0-None Auditory Disturbances: 0-None Visual Disturbances: 0-None Headache: 0-None Present CIWA-Ar Total Score: 8 [facility] COWS - Scale Resting Pulse: 0= [place] 80 or Below Sweatin= Chills/Flushing Restless Observation: 1= Difficult to Sit Still Pupil Size: 0= Normal to Room Light Bone or Joint Aches: 2= Severe Diffuse Aches Runny Nose/ Eye Tearin= Nasal Congestion GI Upset > 30mins: 0= None Tremor Observation of Outstretched Hands: 1= Tremor [place], Not Seen Yawning Observation: 2= >3x During Session Anxiety or Irritability: 2=Irritable/Anxious Goose Flesh Skin: 0=Smooth Skin COWS Score: 10 [facility] Progress Note (SOAP) Subjective: sweats shakes body aches restless I need to speak to psych again..I am ready to talk now. Objective: 04/02/20 13:55 Vital Signs Temperature 98.4 F 04/02/20 09:25 Pulse Rate 80 04/02/20 09:25 Respiratory Rate 19 04/02/20 09:25 Blood Pressure 116/72 04/02/20 09:25 O2 Sat by Pulse Oximetry (%) 100 04/02/20 09:25 Laboratory Tests 04/01/20 04/01/20 04/01/20 10:15 10:15 10:15 WBC 7.0 RBC 4.41 Hgb 12.7 Hct 37.9 MCV 86.0 MCH 28.8 MCHC 33.4 RDW 14.0 Plt Count 206 MPV 8.1 D Sodium 140 Potassium 4.0 Chloride 101 Carbon Dioxide 35 H Anion Gap 4 L BUN 17.4 Creatinine 0.9 Est GFR (CKD-EPI)AfAm 116.65 Est GFR (CKD-EPI)NonAf 100.64 Random Glucose 81 Calcium 8.3 L Total Bilirubin 0.3 AST 13 L ALT 15 Alkaline Phosphatase 81 Total Protein 7.4 Albumin 4.3 Syphilis Serology Non-reactive COVID-19 (KAILEY) 04/01/20 10:15 WBC RBC Hgb Hct MCV MCH MCHC RDW Plt Count MPV Sodium Potassium Chloride Carbon Dioxide Anion Gap BUN Creatinine Est GFR (CKD-EPI)AfAm Est GFR (CKD-EPI)NonAf Random Glucose Calcium Total Bilirubin AST ALT Alkaline Phosphatase Total Protein Albumin Syphilis Serology COVID-19 (KAILEY) Not detected labs noted aaox3 ambulating no acute distress Assessment: 04/02/20 13:55 withdrawals Plan: continue detox re-vist psych order placed
[2020-04-02] MEDS: NICOTINE POLACRILEX 2 MG GUM BUC PRN ×2 (14:10→16:56)
[2020-04-02] MEDS: BACLOFEN 10 MG TABLET (FP) PO SCH ×2 (14:30→22:24)
[2020-04-02] MEDS: MELATONIN 5 MG TABLETS PO SCH (22:24)
[2020-04-02] MEDS: THIAMINE HCL 100 MG TABLET (FP) PO SCH (22:24)
[2020-04-03] MEDS ORDERED: MASKS NR ONE (05:36)
[2020-04-03] MEDS: GABAPENTIN 300 MG CAPSULE PO SCH ×3 (05:37→18:28)
[2020-04-03] MEDS: LORazepam 1 MG TABLET PO SCH ×4 (05:37→22:15)
[2020-04-03] MEDS: BACLOFEN 10 MG TABLET (FP) PO SCH ×3 (05:37→22:15)
[2020-04-03] MEDS ORDERED: METHADONE HCL 10 MG TABLET (FOR DETOX USE ONLY) PO ONE (10:00)
[2020-04-03] MEDS: PRENATAL VITAMINS W/ FOLIC ACID TABLET (FP) PO SCH (10:26)
[2020-04-03] MEDS: NICOTINE 21 MG/24 HOURS TOPICAL PATCH TD SCH (10:26)
[2020-04-03] MEDS: NICOTINE POLACRILEX 2 MG GUM BUC PRN ×4 (10:26→18:46)
--- NOTE | 2020-04-03 14:33 | PN ---
[facility] CIWA - CIWA Score Nausea/Vomitin-No Nausea/No Vomiting Muscle Tremors: 2 Anxiety: 3 Agitation: 2 Paroxysmal Sweats: 2 Orientation: 0-Oriented Tacttile Disturbances: 0-None Auditory Disturbances: 0-None Visual Disturbances: 0-None Headache: 0-None Present CIWA-Ar Total Score: 9 [facility] COWS - Scale Resting Pulse: 2= [place] 101-120 Sweatin= Chills/Flushing Restless Observation: 1= Difficult to Sit Still Pupil Size: 0= Normal to Room Light Bone or Joint Aches: 2= Severe Diffuse Aches Runny Nose/ Eye Tearin= None GI Upset > 30mins: 0= None Tremor Observation of Outstretched Hands: 1= Tremor [place], Not Seen Yawning Observation: 0= None Anxiety or Irritability: 0= None Goose Flesh Skin: 0=Smooth Skin COWS Score: 7 [facility] Progress Note (SOAP) Subjective: Complaints of anxiety, chills, sweats, tremors and body aches. Objective: 04/03/20 14:32 Vital Signs 04/03/20 04/03/20 08:40 12:26 Temperature 97.1 F L 96.2 F L Pulse Rate 108 H 119 H Respiratory 18 20 Rate Blood Pressure 128/76 131/74 O2 Sat by Pulse 100 Oximetry (%) Laboratory Last Values WBC 7.0 K/mm3 (4.0-10.0) 04/01/20 10:15 RBC 4.41 M/mm3 (4.00-5.60) 04/01/20 10:15 Hgb 12.7 GM/dL (11.7-16.9) 04/01/20 10:15 Hct 37.9 % (35.4-49) 04/01/20 10:15 MCV 86.0 fl (80-96) 04/01/20 10:15 MCH 28.8 pg (25.7-33.7) 04/01/20 10:15 MCHC 33.4 g/dl (32.0-35.9) 04/01/20 10:15 RDW 14.0 % (11.9-15.9) 04/01/20 10:15 Plt Count 206 K/MM3 (134-434) 04/01/20 10:15 MPV 8.1 fl (7.5-11.1) D 04/01/20 10:15 Sodium 140 mmol/L (136-145) 04/01/20 10:15 Potassium 4.0 mmol/L (3.5-5.1) 04/01/20 10:15 Chloride 101 mmol/L (98-107) 04/01/20 10:15 Carbon Dioxide 35 mmol/L (21-32) H 04/01/20 10:15 Anion Gap 4 MMOL/L (8-16) L 04/01/20 10:15 BUN 17.4 mg/dL (7-18) 04/01/20 10:15 Creatinine 0.9 mg/dL (0.55-1.3) 04/01/20 10:15 Est GFR (CKD-EPI)AfAm 116.65 04/01/20 10:15 Est GFR (CKD-EPI)NonAf 100.64 04/01/20 10:15 Random Glucose 81 mg/dL (74-106) 04/01/20 10:15 Calcium 8.3 mg/dL (8.5-10.1) L 04/01/20 10:15 Total Bilirubin 0.3 mg/dL (0.2-1) 04/01/20 10:15 AST 13 U/L (15-37) L 04/01/20 10:15 ALT 15 U/L (13-61) 04/01/20 10:15 Alkaline Phosphatase 81 U/L (45-117) 04/01/20 10:15 Total Protein 7.4 g/dl (6.4-8.2) 04/01/20 10:15 Albumin 4.3 g/dl (3.4-5.0) 04/01/20 10:15 Syphilis Serology Non-reactive (NONREACTIVE) 04/01/20 10:15 COVID-19 (KAILEY) Not detected (Not Detected) 04/01/20 10:15 labs noted. Assessment: 04/03/20 14:32 Patient seen and examined, alert and oriented x3, in acute respiratory distress. Full ROM, ambulatory in the unit without assistance. Skin warm to touch without lesions. withdrawal symptoms. Plan: Continue detox protocol.
--- NOTE | 2020-04-03 14:55 | CONSULT ---
[facility] Psychiatric Consult - Data Date of interview: 04/03/20 Admission source: [facility] Identifying data: Patient is a 49 year old male, father of two, unemployed, domiciled, and is supported with financial savings. This is one of multiple admissions for patient. Patient admitted to for opiate and benzodiazepine dependence. Substance Abuse History: Substance Use History. Heroin. Substance amount: 30 bags. Frequency of use: Daily. Substance route: Inhalation (ex: sniffing or snorting). Date of Last Use: 04/01/20 (started age 49). OD 6 mos ago. Has narcan at home, does not carry it with him. Xanax. Substance amount: 2mg -5 tabs. Frequency of use: Daily. Substance route: Oral. Date of Last Use: 04/01/20 (started age 43). Nicotine. Substance amount: 2-3 packs. Frequency of use: Daily. Substance route: Smoking. Date of Last Use: 04/01/20 (started age 17) Medical History: unremarkable except for amputation of left middle finger(work injury). Psychiatric History: Mr. Galaviz states that his first psychiatric contact was in 2017 while at a program called [facility] in [place]. States that he diagnosed with depression and anxiety. He was treated with depakote and then effexor but states that he discontinued medications immediately after discharge. Patient has only received psychiatric treatment while in detox/ rehab settings. He reports being prescribed prozac 80mg daily + Wellbutrin 300mg + Trazodone 200mg while at [facility]. In addition, Mr. Little reports receiving seroquel from his PCP. Patient is totally lost in follow up care. At present patient is requesting trazodone for insomnia. Physical/Sexual Abuse/Trauma History: denies. Mental Status Exam - Mental Status Exam Alert and Oriented to: Time, Place, Person Cognitive Function: Good Patient Appearance: Well Groomed Mood: Withdrawn Affect: Mood Congruent Patient Behavior: Cooperative Speech Pattern: Appropriate Voice Loudness: Normal Thought Process: Intact, Goal Oriented Thought Disorder: Not Present Hallucinations: Denies Suicidal Ideation: Denies Homicidal Ideation: Denies Insight/Judgement: Poor Sleep: Poorly Appetite: Fair Muscle strength/Tone: Normal Gait/Station: Normal Psychiatric Findings - Problem List ([place] 1, 2,3) (1) Opioid withdrawal Current Visit: Yes Status: Acute (2) Sedative abuse Current Visit: Yes Status: Acute (3) Opiate dependence Current Visit: Yes Status: Acute (4) Substance induced mood disorder Current Visit: Yes Status: Acute (5) Substance-induced sleep disorder Current Visit: Yes Status: Acute - Initial Treatment Plan Initial Treatment Plan: Psychoeducation provided. Detoxification in progress. Will order Trazodone 200mg HS. Benefits and side effects discussed. Verbal consent given.
[2020-04-03] MEDS: MELATONIN 5 MG TABLETS PO SCH (22:15)
[2020-04-03] MEDS: traZODone HCL 100 MG TABLET (FP) PO SCH (22:15)
[2020-04-03] MEDS: THIAMINE HCL 100 MG TABLET (FP) PO SCH (22:15)
[2020-04-04] MEDS ORDERED: LORazepam 0.5 MG TABLET PO PRN
[2020-04-04] MEDS: GABAPENTIN 300 MG CAPSULE PO SCH ×3 (01:24→17:53)
[2020-04-04] MEDS: BACLOFEN 10 MG TABLET (FP) PO SCH ×3 (06:37→22:10)
[2020-04-04] MEDS: LORazepam 0.5 MG TABLET PO SCH ×4 (06:37→22:10)
[2020-04-04] MEDS ORDERED: METHADONE HCL 5 MG TABLET (FOR DETOX USE ONLY) ONE (08:50)
[2020-04-04] MEDS ORDERED: METHADONE HCL 10 MG TABLET (FOR DETOX USE ONLY) ONE (08:51)
[2020-04-04] MEDS ORDERED: METHADONE (DETOX) 10 MG, METHADONE (DETOX) 5 MG PO ONE (10:00)
[2020-04-04] MEDS: NICOTINE 21 MG/24 HOURS TOPICAL PATCH TD SCH (10:25)
[2020-04-04] MEDS: PRENATAL VITAMINS W/ FOLIC ACID TABLET (FP) PO SCH (10:25)
[2020-04-04] MEDS: NICOTINE POLACRILEX 2 MG GUM BUC PRN ×2 (10:26→13:44)
--- NOTE | 2020-04-04 12:55 | PN ---
[facility] CIWA - CIWA Score Nausea/Vomitin-No Nausea/No Vomiting Muscle Tremors: 1-None Visible, but [place] Anxiety: 1-Mildly Anxious Agitation: 1-Slight > Activity Paroxysmal Sweats: 1-Minimal Palms Moist Orientation: 0-Oriented Tacttile Disturbances: 0-None Auditory Disturbances: 0-None Visual Disturbances: 0-None Headache: 0-None Present CIWA-Ar Total Score: 4 S COWS - Scale Resting Pulse: 2= [place] 101-120 Sweatin= Chills/Flushing Restless Observation: 0= Sits Still Pupil Size: 0= Normal to Room Light Bone or Joint Aches: 1= Mild Discomfort Runny Nose/ Eye Tearin= None GI Upset > 30mins: 0= None Tremor Observation of Outstretched Hands: 1= Tremor [place], Not Seen Yawning Observation: 0= None Anxiety or Irritability: 1=Feels Anxious/Irritable Goose Flesh Skin: 0=Smooth Skin COWS Score: 6 S Progress Note (SOAP) Subjective: C/O chills, sweats, tremors and anxiety. Objective: 04/04/20 12:54 Vital Signs 04/04/20 04/04/20 05:32 09:18 Temperature 98 F 98.2 F Pulse Rate 70 105 H Respiratory 18 18 Rate Blood Pressure 115/74 133/87 O2 Sat by Pulse 100 100 Oximetry (%) Laboratory Last Values WBC 7.0 K/mm3 (4.0-10.0) 04/01/20 10:15 RBC 4.41 M/mm3 (4.00-5.60) 04/01/20 10:15 Hgb 12.7 GM/dL (11.7-16.9) 04/01/20 10:15 Hct 37.9 % (35.4-49) 04/01/20 10:15 MCV 86.0 fl (80-96) 04/01/20 10:15 MCH 28.8 pg (25.7-33.7) 04/01/20 10:15 MCHC 33.4 g/dl (32.0-35.9) 04/01/20 10:15 RDW 14.0 % (11.9-15.9) 04/01/20 10:15 Plt Count 206 K/MM3 (134-434) 04/01/20 10:15 MPV 8.1 fl (7.5-11.1) D 04/01/20 10:15 Sodium 140 mmol/L (136-145) 04/01/20 10:15 Potassium 4.0 mmol/L (3.5-5.1) 04/01/20 10:15 Chloride 101 mmol/L (98-107) 04/01/20 10:15 Carbon Dioxide 35 mmol/L (21-32) H 04/01/20 10:15 Anion Gap 4 MMOL/L (8-16) L 04/01/20 10:15 BUN 17.4 mg/dL (7-18) 04/01/20 10:15 Creatinine 0.9 mg/dL (0.55-1.3) 04/01/20 10:15 Est GFR (CKD-EPI)AfAm 116.65 04/01/20 10:15 Est GFR (CKD-EPI)NonAf 100.64 04/01/20 10:15 Random Glucose 81 mg/dL (74-106) 04/01/20 10:15 Calcium 8.3 mg/dL (8.5-10.1) L 04/01/20 10:15 Total Bilirubin 0.3 mg/dL (0.2-1) 04/01/20 10:15 AST 13 U/L (15-37) L 04/01/20 10:15 ALT 15 U/L (13-61) 04/01/20 10:15 Alkaline Phosphatase 81 U/L (45-117) 04/01/20 10:15 Total Protein 7.4 g/dl (6.4-8.2) 04/01/20 10:15 Albumin 4.3 g/dl (3.4-5.0) 04/01/20 10:15 Syphilis Serology Non-reactive (NONREACTIVE) 04/01/20 10:15 COVID-19 ([facility]) Not detected (Not Detected) 04/01/20 10:15 Labs noted. Assessment: 04/04/20 12:54 Alert and oriented x3, in no acute respiratory distress. Full ROM, ambulating in the unit without assistance. Withdrawal symptoms. Plan: Continue detox protocol.
[2020-04-04] MEDS: THIAMINE HCL 100 MG TABLET (FP) PO SCH (22:10)
[2020-04-04] MEDS: traZODone HCL 100 MG TABLET (FP) PO SCH (22:10)
[2020-04-04] MEDS: MELATONIN 5 MG TABLETS PO SCH (22:11)
[2020-04-05] MEDS: GABAPENTIN 300 MG CAPSULE PO SCH ×3 (02:00→17:52)
[2020-04-05] MEDS ORDERED: LORazepam 0.5 MG TABLET PO ONE (05:00)
[2020-04-05] MEDS: BACLOFEN 10 MG TABLET (FP) PO SCH ×3 (06:12→21:36)
[2020-04-05] MEDS ORDERED: METHADONE HCL 10 MG TABLET (FOR DETOX USE ONLY) PO ONE (10:00)
[2020-04-05] MEDS: NICOTINE 21 MG/24 HOURS TOPICAL PATCH TD SCH (10:05)
[2020-04-05] MEDS: PRENATAL VITAMINS W/ FOLIC ACID TABLET (FP) PO SCH (10:05)
[2020-04-05] MEDS: NICOTINE POLACRILEX 2 MG GUM BUC PRN ×3 (10:07→17:53)
--- NOTE | 2020-04-05 11:16 | PN ---
[facility] CIWA - CIWA Score Nausea/Vomitin-No Nausea/No Vomiting Muscle Tremors: 1-None Visible, but [place] Anxiety: 1-Mildly Anxious Agitation: 1-Slight > Activity Paroxysmal Sweats: No Perspiration Orientation: 0-Oriented Tacttile Disturbances: 0-None Auditory Disturbances: 0-None Visual Disturbances: 0-None Headache: 0-None Present CIWA-Ar Total Score: 3 S COWS - Scale Resting Pulse: 1= [place] 81-100 Sweatin= No chills or Flushing Restless Observation: 0= Sits Still Pupil Size: 0= Normal to Room Light Bone or Joint Aches: 0= None Runny Nose/ Eye Tearin= None GI Upset > 30mins: 0= None Tremor Observation of Outstretched Hands: 1= Tremor [place], Not Seen Yawning Observation: 0= None Anxiety or Irritability: 1=Feels Anxious/Irritable Goose Flesh Skin: 0=Smooth Skin COWS Score: 3 [facility] Progress Note (SOAP) Subjective: little anxiety otherwise feeling better Objective: 04/05/20 11:16 Vital Signs Temperature 98.2 F 04/05/20 08:54 Pulse Rate 93 H 04/05/20 08:54 Respiratory Rate 20 04/05/20 08:54 Blood Pressure 120/78 04/05/20 08:54 O2 Sat by Pulse Oximetry (%) 99 04/05/20 08:54 aaox3 ambulating no acute distress Assessment: 04/05/20 11:16 mild withdrawals Plan: continue detox d/c in am
[2020-04-05] MEDS: THIAMINE HCL 100 MG TABLET (FP) PO SCH (21:36)
[2020-04-05] MEDS: traZODone HCL 100 MG TABLET (FP) PO SCH (21:36)
[2020-04-05] MEDS: MELATONIN 5 MG TABLETS PO SCH (23:36)
[2020-04-06] MEDS: GABAPENTIN 300 MG CAPSULE PO SCH (04:26)
[2020-04-06] MEDS: BACLOFEN 10 MG TABLET (FP) PO SCH (05:59)
[2020-04-06] MEDS ORDERED: METHADONE HCL 5 MG TABLET (FOR DETOX USE ONLY) PO ONE (06:00)
[2020-04-06] MEDS: NICOTINE POLACRILEX 2 MG GUM BUC PRN (06:02)
[2020-04-06 06:26] VITALS: BP 109/53; PULSE 65; TEMP 97.3
--- NOTE | 2020-04-06 08:43 | DS ---
[facility] Detox Discharge Summary Admission Date: 04/01/20 Discharge Date: 04/06/20 - History Present History: Opioid Dependence - Physical Exam Results Vital Signs: Vital Signs Temperature 97.3 F L 04/06/20 06:25 Pulse Rate 65 04/06/20 06:25 Respiratory Rate 20 04/06/20 06:25 Blood Pressure 109/53 L 04/06/20 06:25 O2 Sat by Pulse Oximetry (%) 98 04/06/20 06:25 Pertinent Admission Physical Exam Findings: Vital Signs Temperature 97.3 F L 04/06/20 06:25 Pulse Rate 65 04/06/20 06:25 Respiratory Rate 20 04/06/20 06:25 Blood Pressure 109/53 L 04/06/20 06:25 O2 Sat by Pulse Oximetry (%) 98 04/06/20 06:25 Laboratory Tests 04/01/20 04/01/20 04/01/20 10:15 10:15 10:15 WBC 7.0 RBC 4.41 Hgb 12.7 Hct 37.9 MCV 86.0 MCH 28.8 MCHC 33.4 RDW 14.0 Plt Count 206 MPV 8.1 D Sodium 140 Potassium 4.0 Chloride 101 Carbon Dioxide 35 H Anion Gap 4 L BUN 17.4 Creatinine 0.9 Est GFR (CKD-EPI)AfAm 116.65 Est GFR (CKD-EPI)NonAf 100.64 Random Glucose 81 Calcium 8.3 L Total Bilirubin 0.3 AST 13 L ALT 15 Alkaline Phosphatase 81 Total Protein 7.4 Albumin 4.3 Syphilis Serology Non-reactive COVID-19 ([facility]) 04/01/20 10:15 WBC RBC Hgb Hct MCV MCH MCHC RDW Plt Count MPV Sodium Potassium Chloride Carbon Dioxide Anion Gap BUN Creatinine Est GFR (CKD-EPI)AfAm Est GFR (CKD-EPI)NonAf Random Glucose Calcium Total Bilirubin AST ALT Alkaline Phosphatase Total Protein Albumin Syphilis Serology COVID-19 ([facility]) Not detected labs noted aaox3 ambulating no acute distress lungs CTA - Treatment Hospital Course: Detox Protocol Followed, Detoxed Safely, Responded well, Discharged Condition Good, Rehab Referral Accepted - Medication Discharge Medications: Ambulatory Orders traZODone HCL [Trazodone HCl] 200 mg PO HS 02/11/19 Baclofen 20 mg PO TID 04/01/20 Gabapentin [Neurontin -] 300 mg PO Q8H 04/01/20 Quetiapine Fumarate [Seroquel -] 50 mg PO BID 04/01/20 Quetiapine Fumarate [Seroquel -] 100 mg PO HS 04/01/20 - Diagnosis (1) Opiate dependence Current Visit: Yes Status: Chronic Qualifiers: Substance use status: uncomplicated Qualified Code(s): F11.20 - Opioid d ependence, uncomplicated (2) Sedative abuse Current Visit: Yes Status: Chronic (3) Substance induced mood disorder Current Visit: Yes Status: Acute (4) Substance-induced sleep disorder Current Visit: Yes Status: Acute (5) Nicotine dependence Current Visit: Yes Status: Chronic Qualifiers: Nicotine product type: cigarettes Substance use status: uncomplicated Qualified Code(s): F17.210 - Nicotine dependence, cigarettes, uncomplicated - AMA Did Patient Leave Against Medical Advice: No
== END 2020-04-06 09:10 | disposition home or self-care (01) | DRG 773 ==
LOC: YASAS 08:27 → Y6N 09:42
PROVIDERS: ADMIT Allergy & Immunology; ATTEND Allergy & Immunology
PROC: HZ2ZZZZ Detoxification Services for Substance Abuse Treatment (ICD-10-PCS; principal; 2020-04-01)
DX: F11.23 Opioid dependence with withdrawal (principal); F13.20 Sedative, hypnotic or anxiolytic dependence, uncomplicated; F17.210 Nicotine dependence, cigarettes, uncomplicated; F19.282 Other psychoactive substance dependence with psychoactive substance-induced sleep disorder; F19.24 Other psychoactive substance dependence with psychoactive substance-induced mood disorder; F32.9 Major depressive disorder, single episode, unspecified; Z89.022 Acquired absence of left finger(s); Z98.890 Other specified postprocedural states
CPT/HCPCS: 36415; 80053; 85027; 86780; 93005; 93010; C9803; J0475; U0003

== ENCOUNTER 2020-08-27 08:42 | Inpatient (IN) | payer OTHER ==
[2020-08-27 09:55] VITALS: BMI 24.7
[2020-08-27] MEDS ORDERED: BISMUTH SUBSALICYLATE 524 MG/30 ML UD PO PRN (10:47)
[2020-08-27] MEDS ORDERED: cloNIDine HCL 0.1 MG TABLET PO PRN (10:47)
[2020-08-27] MEDS ORDERED: MENTHOL/PHENOL 1 EACH UD MM PRN (10:47)
[2020-08-27] MEDS ORDERED: MAG HYDROX/AL HYDROX/SIMETH 30 ML UNIT-DOSE CUP PO PRN (10:47)
[2020-08-27] MEDS ORDERED: ONDANSETRON *ODT* 4 MG TABLET SL PRN (10:47)
[2020-08-27] MEDS ORDERED: MAGNESIUM CITRATE 300 ML BOTTLE PO PRN (10:47)
[2020-08-27] MEDS ORDERED: IBUPROFEN 400 MG TABLET (FP) PO PRN (10:47)
[2020-08-27] MEDS ORDERED: MAGNESIUM HYDROX 2400MG/30ML ORAL SUSPENSION 30 ML CUP PO PRN (10:47)
[2020-08-27] MEDS ORDERED: ACETAMINOPHEN 325 MG TABLET (FP) PO PRN ×2 (10:47)
[2020-08-27] MEDS ORDERED: METHADONE HCL 10 MG TABLET (FOR DETOX USE ONLY) PO ONE (11:00)
[2020-08-27] MEDS: NICOTINE POLACRILEX 2 MG GUM BUC PRN ×2 (11:17→15:27)
[2020-08-27] MEDS: diazePAM 5 MG TABLET PO SCH ×3 (12:16→23:32)
[2020-08-27] MEDS: PRENATAL VITAMINS W/ FOLIC ACID TABLET (FP) PO SCH (12:16)
[2020-08-27] MEDS: NICOTINE 21 MG/24 HOURS TOPICAL PATCH TD SCH (12:16)
[2020-08-27 14:46] LABS: HEMATOCRIT 37.6 % (35.4-49); HEMOGLOBIN 12.8 GM/dL (11.7-16.9); MCH 29.8 pg (25.7-33.7); MCHC 33.9 g/dl (32.0-35.9); MEAN CELL VOLUME 87.7 fl (80-96); MEAN PLT VOLUME 8.4 fl (7.5-11.1); PLATELET COUNT 223 K/MM3 (134-434); RBC 4.29 M/mm3 (4.00-5.60); RDW 13.4 % (11.9-15.9); WHITE BLOOD COUNT 8.3 K/mm3 (4.0-10.0)
[2020-08-27 15:13] LABS: POTASSIUM 3.7 mmol/L (3.5-5.1)
[2020-08-27] MEDS: hydrOXYzine PAMOATE 25 MG CAPSULE (FP) PO SCH ×3 (15:15→23:29)
[2020-08-27 15:18] LABS: BLOOD UREA NITROGEN 19.2 mg/dL (7-18); CALCIUM 8.6 mg/dL (8.5-10.1)
[2020-08-27 15:19] LABS: ALBUMIN 4.3 g/dl (3.4-5.0)
[2020-08-27 15:22] LABS: CREATININE 0.9 mg/dL (0.55-1.3)
[2020-08-27 15:24] LABS: TOT PROT 7.3 g/dl (6.4-8.2)
[2020-08-27 15:26] LABS: BILIRUBIN,TOTAL 0.6 mg/dL (0.2-1)
[2020-08-27] MEDS: MELATONIN 5 MG TABLETS PO SCH (23:29)
[2020-08-27] MEDS: THIAMINE HCL 100 MG TABLET (FP) PO SCH (23:29)
[2020-08-27] MEDS: traZODone HCL 100 MG TABLET (FP) PO SCH (23:29)
[2020-08-28] MEDS: diazePAM 5 MG TABLET PO SCH ×4 (05:39→23:02)
[2020-08-28] MEDS: hydrOXYzine PAMOATE 25 MG CAPSULE (FP) PO SCH ×5 (05:40→23:03)
[2020-08-28] MEDS: NICOTINE POLACRILEX 2 MG GUM BUC PRN ×2 (08:46→12:35)
[2020-08-28] MEDS ORDERED: METHADONE HCL 5 MG TABLET (FOR DETOX USE ONLY) ONE (09:17)
[2020-08-28] MEDS ORDERED: METHADONE HCL 10 MG TABLET (FOR DETOX USE ONLY) ONE (09:17)
[2020-08-28] MEDS ORDERED: METHADONE (DETOX) 20 MG, METHADONE (DETOX) 5 MG PO ONE (10:00)
[2020-08-28] MEDS: NICOTINE 21 MG/24 HOURS TOPICAL PATCH TD SCH (10:11)
[2020-08-28] MEDS: PRENATAL VITAMINS W/ FOLIC ACID TABLET (FP) PO SCH (10:12)
[2020-08-28] MEDS: METHOCARBAMOL 500 MG TABLET PO PRN ×2 (10:13→18:22)
[2020-08-28] MEDS: THIAMINE HCL 100 MG TABLET (FP) PO SCH (23:02)
[2020-08-28] MEDS: traZODone HCL 100 MG TABLET (FP) PO SCH (23:03)
[2020-08-28] MEDS: MELATONIN 5 MG TABLETS PO SCH (23:03)
[2020-08-29] MEDS: diazePAM 5 MG TABLET PO PRN ×2 (02:21→10:06)
[2020-08-29] MEDS: hydrOXYzine PAMOATE 25 MG CAPSULE (FP) PO SCH ×2 (05:30→10:06)
[2020-08-29] MEDS: NICOTINE POLACRILEX 2 MG GUM BUC PRN (05:32)
[2020-08-29] MEDS ORDERED: diazePAM 5 MG TABLET PO SCH (06:00)
[2020-08-29 09:47] VITALS: BP 110/63; PULSE 79; TEMP 98.4
[2020-08-29] MEDS ORDERED: METHADONE HCL 10 MG TABLET (FOR DETOX USE ONLY) PO ONE (10:00)
[2020-08-29] MEDS: PRENATAL VITAMINS W/ FOLIC ACID TABLET (FP) PO SCH (10:03)
[2020-08-29] MEDS: NICOTINE 21 MG/24 HOURS TOPICAL PATCH TD SCH (10:03)
[2020-08-29] MEDS: METHOCARBAMOL 500 MG TABLET PO PRN (10:03)
[2020-08-30] MEDS ORDERED: diazePAM 5 MG TABLET PO SCH (06:00)
[2020-08-30] MEDS ORDERED: METHADONE (DETOX) 10 MG, METHADONE (DETOX) 5 MG PO ONE (10:00)
[2020-08-31] MEDS ORDERED: diazePAM 5 MG TABLET PO ONE (06:00)
[2020-08-31] MEDS ORDERED: METHADONE HCL 10 MG TABLET (FOR DETOX USE ONLY) PO ONE (10:00)
[2020-09-01] MEDS ORDERED: METHADONE HCL 5 MG TABLET (FOR DETOX USE ONLY) PO ONE (06:00)
== END 2020-08-29 11:23 | disposition left against medical advice (07) | DRG 770 ==
LOC: YASAS 08:42 → Y3N 11:09
PROVIDERS: ADMIT Allergy & Immunology; ATTEND Allergy & Immunology
PROC: HZ2ZZZZ Detoxification Services for Substance Abuse Treatment (ICD-10-PCS; principal; 2020-08-27)
DX: F11.23 Opioid dependence with withdrawal (principal); F13.20 Sedative, hypnotic or anxiolytic dependence, uncomplicated; F17.210 Nicotine dependence, cigarettes, uncomplicated; F19.282 Other psychoactive substance dependence with psychoactive substance-induced sleep disorder; F19.24 Other psychoactive substance dependence with psychoactive substance-induced mood disorder; F39 Unspecified mood [affective] disorder; F32.9 Major depressive disorder, single episode, unspecified; R79.89 Other specified abnormal findings of blood chemistry; Z89.022 Acquired absence of left finger(s)
CPT/HCPCS: 36415; 80053; 85027; 86780; C9803; U0003